=== PATIENT | female | born 1930 | race Native Hawaiian/Other Pacific Islander ===

== ENCOUNTER 2018-08-07 12:25 | Inpatient (IN) | payer OTHER ==
[2018-08-08 06:28] LABS: PLATELET COUNT 169 K/uL (152-353)
[2018-08-08 06:34] LABS: POTASSIUM 3.7 mmol/L (3.6-5.2)
[2018-08-09 06:05] LABS: PLATELET COUNT 174 K/uL (152-353)
[2018-08-16 05:45] LABS: PLATELET COUNT 189 K/uL (152-353)
[2018-08-16 05:59] LABS: POTASSIUM 3.2 mmol/L (3.6-5.2)
[2018-08-30 05:49] LABS: PLATELET COUNT 134 K/uL (152-353)
== END 2018-09-01 13:35 | disposition still patient (30) ==
LOC: PAVB 12:25
PROVIDERS: ADMIT Family Medicine
DX: I69.351 Hemiplegia and hemiparesis following cerebral infarction affecting right dominant side (principal); M62.81 Muscle weakness (generalized); G93.41 Metabolic encephalopathy; R62.7 Adult failure to thrive; F01.50 Vascular dementia, unspecified severity, without behavioral disturbance, psychotic disturbance, mood disturbance, and anxiety; D64.9 Anemia, unspecified; E03.9 Hypothyroidism, unspecified; E11.21 Type 2 diabetes mellitus with diabetic nephropathy; I10 Essential (primary) hypertension; R33.9 Retention of urine, unspecified
CPT/HCPCS: 36415; 80053; 80061; 82542; 82607; 83036; 83540; 84443; 85027; 87081

== ENCOUNTER 2018-09-01 13:52 | Inpatient (IN) | payer OTHER | END 2018-09-29 11:40 | disposition still patient (30) | LOC: PAVB 13:52 | PROVIDERS: ADMIT Family Medicine | DX: I69.351 Hemiplegia and hemiparesis following cerebral infarction affecting right dominant side (principal); M62.81 Muscle weakness (generalized); G93.41 Metabolic encephalopathy; R62.7 Adult failure to thrive; F01.50 Vascular dementia, unspecified severity, without behavioral disturbance, psychotic disturbance, mood disturbance, and anxiety; D64.9 Anemia, unspecified; E03.9 Hypothyroidism, unspecified; E11.21 Type 2 diabetes mellitus with diabetic nephropathy ==

== ENCOUNTER 2018-09-29 11:51 | Inpatient (IN) | payer OTHER | END 2018-10-30 11:35 | disposition still patient (30) | LOC: PAVB 11:51 | PROVIDERS: ADMIT Family Medicine ==

== ENCOUNTER 2018-10-18 12:03 | Outpatient (CLI) | payer OTHER ==
[2018-10-18 12:11] LABS: PLATELET COUNT 167 K/uL (152-353)
[2018-10-18 12:20] LABS: POTASSIUM 3.9 mmol/L (3.6-5.2)
[2018-10-18 12:27] LABS: PARTIAL THROMBOPLASTIN TIME 26.3 SECONDS (24.5-33.6)
== END 2018-10-18 23:12 | disposition home or self-care (01) ==
LOC: LAB 12:03 → RAD 12:03 → LAB 23:12
PROVIDERS: Family Medicine
DX: D64.9 Anemia, unspecified (principal); R03.0 Elevated blood-pressure reading, without diagnosis of hypertension; R23.3 Spontaneous ecchymoses; I50.9 Heart failure, unspecified; R60.9 Edema, unspecified
CPT/HCPCS: 80053; 85002; 85027; 85610; 85730

== ENCOUNTER 2018-10-30 11:43 | Inpatient (IN) | payer OTHER | END 2018-11-29 12:43 | disposition still patient (30) | LOC: PAVB 11:43 | PROVIDERS: ADMIT Family Medicine ==

== ENCOUNTER 2018-11-02 06:07 | Outpatient (CLI) | payer OTHER | END 2018-11-02 19:10 | disposition home or self-care (01) | LOC: LAB 06:07 | DX: E11.9 Type 2 diabetes mellitus without complications (principal) | CPT/HCPCS: 83036 ==